=== PATIENT | female | born 1990 | race Caucasian/White ===

== ENCOUNTER 2019-11-24 19:50 | Inpatient (IN) | payer OTHER ==
[2019-11-24] MEDS ORDERED: AMPICILLIN SODIUM 2 GM VIAL ONE (22:18)
[2019-11-24] MEDS ORDERED: OXYTOCIN 30 UNITS in 0.9% NS 30 UNIT/500 ML INFUS.BAG IVPB ONE (22:18)
[2019-11-24] MEDS ORDERED: AMPICILLIN - 2 GM in SODIUM CHLORIDE 100 ML IVPB ONE (22:41)
[2019-11-24] MEDS ORDERED: OXYTOCIN 30 UNITS in 0.9% NS 30 UNIT/500 ML INFUS.BAG IVPB SCH (22:45)
[2019-11-24] MEDS ORDERED: ELECTROLYTE-148 SOLN 1,000 ML IV SCH (22:45)
--- NOTE | 2019-11-24 22:50 | HP ---
Past Medical History - Primary Care Physician PCP:: Omkar Canales - Admission Chief Complaint: pregnacy 37 weeks, labor History of Present Illness: 29 yo f care with DR gomes c/o contraction, no ROM, has bloody show , cx 4 cm 80 vx -2 mi, fhr cat 1, irregular contraction , GBS unknown, History Source: Patient Limitations to Obtaining History: No Limitations - Past Medical History ...: 1 ...Para: 0 ...EDC by Sono: 12/11/19 - Past Surgical History Hx Myomectomy: No Hx Transabdominal Cerclage: No - Alcohol/Substance Use Hx Alcohol Use: No History of Substance Use: reports: None - Social History Usual Living Arrangement: Yes: With Spouse History of Recent Travel: No Home Medications - Allergies Allergies/Adverse Reactions: Allergies Allergy/AdvReac Type Severity Reaction Status Date / Time No Known Allergies Allergy Verified 11/24/19 21:18 - Home Medications Home Medications: Ambulatory Orders Pnv 29-1 Tablet 1 tab PO DAILY 11/24/19 Review of Systems - Review of Systems Constitutional: reports: No Symptoms Eyes: reports: No Symptoms HENT: reports: No Symptoms Neck: reports: No Symptoms Cardiovascular: reports: No Symptoms Respiratory: reports: No Symptoms Gastrointestinal: reports: No Symptoms Genitourinary: reports: No Symptoms Breasts: reports: No Symptoms Reported Musculoskeletal: reports: No Symptoms Integumentary: reports: No Symptoms Neurological: reports: No Symptoms Endocrine: reports: No Symptoms Hematology/Lymphatic: reports: No Symptoms Psychiatric: reports: No Symptoms Physical Exam - Maternity Constitutional: Yes: Obese Eyes: Yes: WNL HENT: Yes: WNL Neck: Yes: WNL Cardiovascular: Yes: WNL Breast(s): Yes: WNL - Abdominal Exam/OB Fundal Height: 40 Number of Fetuses: Single Presentation: Vertex Contractions: Yes Regularity: Irregular Intensity: Moderate Monitor Mode: External Heart Rate Location: [facility] Category: I Accelerations: Non-Uniform Decelerations: None - Vaginal Exam/OB Vaginal Bleeding: Bloody Show Speculum Exam: No Dilatation (cm): 4cm Effacement (%): 80 Amniotic Membrane Status: Intact Presentation: Vertex/Position Station: -2 - Physical Exam Musculoskeletal: Yes: WNL Extremities: Yes: WNL Edema: Yes Edema: LLE: Trace, RLE: Trace Deep Tendon Reflex Grade: Normal +2 ...Motor Strength: WNL Psychiatric: Yes: WNL Hemorrhage Risk Assessment - Risk Factors Medium Risk Factors: Yes: None High Risk Factors: Yes: None Risk Score: 1 Risk Level: Medium Risk Problem List - Problems (1) with 37 weeks completed gestation Code(s): Z3A.37 - 37 WEEKS GESTATION OF (2) Labor established Code(s): SWW4610 - Assessment/Plan admit for vaginal delivery GBS prophylaxis irregular contraction , advised pitocin , risks discussed
--- NOTE | 2019-11-24 22:52 | PN ---
Progress Note (short form) - Note Progress Note: srom, clear, fhr cat 1 , wants epidural Problem List - Problems (1) with 37 weeks completed gestation Code(s): Z3A.37 - 37 WEEKS GESTATION OF (2) Labor established Code(s): [id number] -
[2019-11-24] MEDS ORDERED: BUPIVACAINE HCL/PF 0.25% (2.5MG/ML) 10 ML VIAL ONE (23:26)
[2019-11-24] MEDS ORDERED: FENTANYL/BUPIVACAINE/NS/PF - PCEA - 50 ML DISP.SYRIN EP ONE (23:31)
[2019-11-24] MEDS ORDERED: PCA PUMP NR ONE (23:32)
[2019-11-24 23:39] LABS: BASO % 0.3 % (0-2.0); HEMATOCRIT 33.3 % (32.4-45.2); HEMOGLOBIN 11.3 GM/dL (10.7-15.3); LYMPH % 12.4 % (8-40); MCH 31.7 pg (25.7-33.7); MCHC 33.9 g/dl (32.0-36.0); MEAN CELL VOLUME 93.5 fl (80-96); MEAN PLT VOLUME 9.5 fl (7.5-11.1); MONO % 6.1 % (3.8-10.2); NEUT % 80.2 % (42.8-82.8); PLATELET COUNT 244 K/MM3 (134-434); RBC 3.56 M/mm3 (3.60-5.2); RDW 13.4 % (11.6-15.6); WHITE BLOOD COUNT 15.9 K/mm3 (4.0-10.0)
[2019-11-24 23:45] LABS: INR 0.88 (0.83-1.09); PROTHROMBIN TIME (PATIENT) 10.4 SEC (9.7-13.0)
[2019-11-24 23:59] LABS: BLOOD UREA NITROGEN 9.6 mg/dL (7-18); CALCIUM 8.6 mg/dL (8.5-10.1); CREATININE 0.5 mg/dL (0.55-1.3); POTASSIUM 4.2 mmol/L (3.5-5.1)
[2019-11-25] MEDS ORDERED: NALOXONE HCL 0.4 MG/ML VIAL IVPUSH PRN (00:13)
[2019-11-25] MEDS ORDERED: FENTANYL/BUPIVACAINE/NS/PF - PCEA - 50 ML DISP.SYRIN EP SCH (00:15)
[2019-11-25] MEDS ORDERED: OXYTOCIN 20 UNITS in 0.9% NS 20 UNIT/1,000 ML INFUS.BAG IV ONE (01:09)
[2019-11-25] MEDS ORDERED: BENZOCAINE 28 GM HEMORRHOIDAL OINTMENT TP PRN (01:29)
[2019-11-25] MEDS ORDERED: ACETAMINOPHEN 325 MG TABLET (FP) PO PRN (01:29)
[2019-11-25] MEDS ORDERED: IBUPROFEN 600 MG TABLET (FP) PO PRN (01:29)
[2019-11-25] MEDS ORDERED: BENZOCAINE 20% 57 GM BOTTLE TP PRN (01:29)
[2019-11-25] MEDS ORDERED: WITCH HAZEL 50% (TUCKS) 40 PAD/JAR PAD TP PRN (01:29)
[2019-11-25] MEDS ORDERED: METHYLERGONOVINE MALEATE 0.2 MG/1 ML AMP IM PRN (01:29)
[2019-11-25] MEDS ORDERED: BISACODYL 10 MG SUPP.RECT RC PRN (01:29)
[2019-11-25] MEDS ORDERED: METHYLERGONOVINE MALEATE 0.2 MG/1 ML AMP IM ONE (01:30)
[2019-11-25] MEDS ORDERED: OXYTOCIN 20 UNITS in 0.9% NS 20 UNIT/1,000 ML INFUS.BAG IV SCH (01:30)
--- NOTE | 2019-11-25 01:32 | PN ---
Delivery - Delivery Vaginal Delivery: Spontaneous Type of Anesthesia: Epidural Episiotomy/Laceration: None (cx full head delivered DOMENIC, ant and post shoulder with no difficulty , live baby girl , 9/9 ,placeta complete , no laceration, ebl 300cc , no complication, baby bonded with MOM)
[2019-11-25 02:42] VITALS: BMI 37.2
[2019-11-25] MEDS ORDERED: AMPICILLIN - 1 GM in SODIUM CHLORIDE 100 ML IVPB SCH (03:00)
[2019-11-25 04:57] LABS: CORD BASE EXCESS -5.7 mmol/L (0-2); CORD HCO3 21.1 mmHg (20-29); CORD PCO2 45.9 mmHg (30-78); CORD pH 7.281 (7.14-7.44)
[2019-11-25] MEDS: FERROUS SO4 325 MG TABLET (FP) PO SCH ×2 (09:28→21:23)
[2019-11-25] MEDS: PRENATAL VITAMINS W/ FOLIC ACID TABLET (FP) PO SCH (09:29)
[2019-11-25 13:04] LABS: POC NITRAZINE POS
--- NOTE | 2019-11-26 07:39 | PN ---
Post Progress Note - Subjective Subjective: Feels well. Post Day: 1 Type of Delivery: Vital Signs: Vital Signs Temperature 98.3 F 11/25/19 21:54 Pulse Rate 97 H 11/25/19 21:54 Respiratory Rate 18 11/25/19 21:54 Blood Pressure 123/78 11/25/19 21:54 O2 Sat by Pulse Oximetry (%) 98 11/25/19 03:00 Breast Exam: Yes: Soft Uterus: Yes: Fundus Firm Abdomen/GI: Yes: Abdomen soft, Tolerating PO Lochia: Yes: Rubra Lochia, amount: Small Extremities: Yes: Calves non-tender - Labs Labs: CBC WBC 15.9 K/mm3 (4.0-10.0) H 11/24/19 22:45 RBC 3.56 M/mm3 (3.60-5.2) L 11/24/19 22:45 Hgb 11.3 GM/dL (10.7-15.3) 11/24/19 22:45 Hct 33.3 % (32.4-45.2) 11/24/19 22:45 MCV 93.5 fl (80-96) 11/24/19 22:45 MCH 31.7 pg (25.7-33.7) 11/24/19 22:45 MCHC 33.9 g/dl (32.0-36.0) 11/24/19 22:45 RDW 13.4 % (11.6-15.6) 11/24/19 22:45 Plt Count 244 K/MM3 (134-434) 11/24/19 22:45 MPV 9.5 fl (7.5-11.1) 11/24/19 22:45 Absolute Neuts (auto) 12.7 K/mm3 (1.5-8.0) H 11/24/19 22:45 Neutrophils % 80.2 % (42.8-82.8) 11/24/19 22:45 Lymphocytes % 12.4 % (8-40) 11/24/19 22:45 Monocytes % 6.1 % (3.8-10.2) 11/24/19 22:45 Eosinophils % 1.0 % (0-4.5) 11/24/19 22:45 Basophils % 0.3 % (0-2.0) 11/24/19 22:45 Nucleated RBC % 0 % (0-0) 11/24/19 22:45 Other Findings, Remarks: Doing well. Problem List - Problems (1) Normal course Code(s): Z39.2 - ENCOUNTER FOR ROUTINE FOLLOW-UP Assessment/Plan Doing well. Uneventful recovery. Instructions given. Discharge.
--- NOTE | 2019-11-26 07:44 | DS ---
Physical Exam-FERMENTER WINE Vital Signs: Vital Signs Temperature 98.3 F 11/25/19 21:54 Pulse Rate 97 H 11/25/19 21:54 Respiratory Rate 18 11/25/19 21:54 Blood Pressure 123/78 11/25/19 21:54 O2 Sat by Pulse Oximetry (%) 98 11/25/19 03:00 Constitutional: Yes: Well Nourished, No Distress, Calm Eyes: Yes: WNL, Conjunctiva Clear, EOM Intact HENT: Yes: WNL, Atraumatic, Normocephalic Neck: Yes: WNL, Supple, Trachea Midline Cardiovascular: Yes: WNL, Regular Rate and Rhythm Respiratory: Yes: WNL, Regular, CTA Bilaterally Gastrointestinal: Yes: WNL ...Rectal Exam: Yes: WNL Renal/: Yes: WNL ....Post : Yes: Uterus firm Breast(s): Yes: WNL Musculoskeletal: Yes: WNL Extremities: Yes: WNL Integumentary: Yes: WNL Neurological: Yes: WNL, Alert, Oriented ...Motor Strength: WNL Psychiatric: Yes: WNL, Alert, Oriented Labs: CBC, BMP 11/24/19 22:45 11/24/19 22:45 Delivery - Delivery Vaginal Delivery: Spontaneous Type of Anesthesia: Epidural Episiotomy/Laceration: None (cx full head delivered DOMENIC, ant and post shoulder with no difficulty , live baby girl , 9/9 ,placeta complete , no laceration, ebl 300cc , no complication, baby bonded with MOM) EBL (cc): 300 Delivery, Single - Stages of Labor Date 1st Stage Initiatied: 11/24/19 Time 1st Stage Initiated: 17:00 Date 2nd Stage Initiated: 11/24/19 Time 2nd Stage Initiated: 22:30 Date of Delivery: 11/25/19 Time of Delivery: 01:12 Time Placenta Delivered: 01:15 - Condition of Infant Social Worker Health Services/Assistant Auditor Present: No Gender: Female Weight: 6 lb 11 oz Position: Left, OA Total Hours ROM (Hrs/Mins): 2 HOURS/ 42 MINUTES - 1 Minute Total Score: 9 5 Minutes Total Score: 9 - [place] Feeding Plan Initial Plan: Exclusive throughout hospitalization Remarks - Remarks Remarks: Happy. Excellent recovery. Discharge today. Discharge Summary Problems reviewed: Yes Reason For Visit: LABOR Current Active Problems Labor established (Acute) Normal course (Acute) with 37 weeks completed gestation (Acute) Hospital Course: excellent Condition: Good - Instructions Diet, Activity, Other Instructions: all discussed Disposition: HOME - Home Medications Comprehensive Discharge Medication List: Ambulatory Orders Pnv 29-1 Tablet 1 tab PO DAILY 11/24/19
[2019-11-26 08:20] LABS: BASO % 0.2 % (0-2.0); EOS % 1.9 % (0-4.5); HEMATOCRIT 30.4 % (32.4-45.2); HEMOGLOBIN 10.3 GM/dL (10.7-15.3); LYMPH % 22.2 % (8-40); MCH 32.1 pg (25.7-33.7); MCHC 33.9 g/dl (32.0-36.0); MEAN CELL VOLUME 94.6 fl (80-96); MEAN PLT VOLUME 9.1 fl (7.5-11.1); MONO % 5.1 % (3.8-10.2); NEUT % 70.6 % (42.8-82.8); PLATELET COUNT 240 K/MM3 (134-434); RBC 3.21 M/mm3 (3.60-5.2); RDW 13.7 % (11.6-15.6); WHITE BLOOD COUNT 11.8 K/mm3 (4.0-10.0)
[2019-11-26] MEDS: PRENATAL VITAMINS W/ FOLIC ACID TABLET (FP) PO SCH (09:12)
[2019-11-26] MEDS: FERROUS SO4 325 MG TABLET (FP) PO SCH (09:12)
[2019-11-26 09:42] VITALS: BP 127/82; PULSE 90; TEMP 97.9
[2019-11-26] MEDS ORDERED: SENNOSIDES/DOCUSATE COMBO (SENNA PLUS) TABLET (UD) PO PRN (22:00)
== END 2019-11-26 11:10 | disposition home or self-care (01) | DRG 560 ==
LOC: JDEL 19:50 → JLDR 21:30 → J3N 11-25 04:33
PROVIDERS: ADMIT Obstetrics & Gynecology; ATTEND Obstetrics & Gynecology
PROC: 10E0XZZ Delivery of Products of Conception, External Approach (ICD-10-PCS; principal; 2019-11-25)
DX: O80 Encounter for full-term uncomplicated delivery (principal); Z3A.37 37 weeks gestation of pregnancy; Z37.0 Single live birth
CPT/HCPCS: 36415; 36600; 59409; 80048; 82803; 83986-QW; 85025; 85610; 85730; 86780; 86850; 86900; 86901; 87389; U0003

== ENCOUNTER 2021-09-21 09:45 | Inpatient (IN) | payer BC ==
[~2021-09-21 09:45] MED LIST: ELECTROLYTE-148 SOLN 1,000 ML IV SCH; OXYTOCIN 30 UNITS in 0.9% NS 30 UNIT/500 ML INFUS.BAG IVPB SCH
[2021-09-21] MEDS ORDERED: OXYTOCIN 30 UNITS in 0.9% NS 30 UNIT/500 ML INFUS.BAG IVPB ONE (10:43)
[2021-09-21 11:39] VITALS: BMI 38.4
[2021-09-21] MEDS ORDERED: FENTANYL/BUPIVACAINE/NS/PF - PCEA - 50 ML DISP.SYRIN EP ONE ×3 (16:45→23:38)
[2021-09-21] MEDS: FENTANYL/BUPIVACAINE/NS/PF - PCEA - 50 ML DISP.SYRIN EP SCH (17:20)
[2021-09-21] MEDS ORDERED: NALOXONE HCL 0.4 MG/ML VIAL IVPUSH PRN (17:35)
[2021-09-21] MEDS ORDERED: BUPIVACAINE HCL/PF 0.25% (2.5MG/ML) 10 ML VIAL ONE ×2 (21:39→23:39)
[2021-09-22] MEDS ORDERED: OXYTOCIN 20 UNITS in 0.9% NS 20 UNIT/1,000 ML INFUS.BAG IV ONE (02:08)
[2021-09-22] MEDS ORDERED: ACETAMINOPHEN 325 MG TABLET (FP) PO PRN (02:36)
[2021-09-22] MEDS ORDERED: BENZOCAINE 20% 57 GM BOTTLE TP PRN (02:36)
[2021-09-22] MEDS ORDERED: WITCH HAZEL 50% (TUCKS) 40 PAD/JAR PAD TP PRN (02:36)
[2021-09-22] MEDS ORDERED: BENZOCAINE 28 GM HEMORRHOIDAL OINTMENT TP PRN (02:36)
[2021-09-22] MEDS ORDERED: BISACODYL 10 MG SUPP.RECT RC PRN (02:36)
[2021-09-22] MEDS ORDERED: METHYLERGONOVINE MALEATE 0.2 MG/1 ML AMP IM PRN (02:36)
[2021-09-22] MEDS ORDERED: oxyCODONE HCL 5 MG TABLET PO PRN (02:36)
[2021-09-22] MEDS ORDERED: OXYTOCIN 20 UNITS in 0.9% NS 20 UNIT/1,000 ML INFUS.BAG IV SCH (02:45)
[2021-09-22] MEDS: IBUPROFEN 600 MG TABLET (FP) PO PRN ×2 (08:09→16:57)
[2021-09-22 08:22] LABS: BASO % 0.2 % (0-2.0); EOS % 0.5 % (0-4.5); HEMATOCRIT 27.9 % (32.4-45.2); HEMOGLOBIN 9.3 GM/dL (10.7-15.3); LYMPH % 13.6 % (8-40); MCHC 33.3 g/dl (32.0-36.0); MEAN PLT VOLUME 9.4 fl (7.5-11.1); MONO % 5.3 % (3.8-10.2); NEUT % 80.4 % (42.8-82.8); PLATELET COUNT 208 10^3/uL (134-434); RDW 13.2 % (11.6-15.6); WHITE BLOOD COUNT 15.9 K/mm3 (4.0-10.0)
[2021-09-22] MEDS: PRENATAL VITAMINS W/ FOLIC ACID TABLET (FP) PO SCH (09:35)
[2021-09-22] MEDS: FENTANYL/BUPIVACAINE/NS/PF - PCEA - 50 ML DISP.SYRIN EP SCH (18:53)
[2021-09-23 09:16] VITALS: BP 116/69; PULSE 69; TEMP 98
[2021-09-23] MEDS: PRENATAL VITAMINS W/ FOLIC ACID TABLET (FP) PO SCH (09:38)
[2021-09-23] MEDS ORDERED: SENNOSIDES/DOCUSATE COMBO (SENNA PLUS) TABLET (UD) PO PRN (22:00)
== END 2021-09-23 16:30 | disposition home or self-care (01) | DRG 560 ==
LOC: JLDR 09:45 → J3W 09-22 03:43
PROVIDERS: ADMIT Obstetrics & Gynecology; ATTEND Obstetrics & Gynecology
PROC: 3E033VJ Introduction of Other Hormone into Peripheral Vein, Percutaneous Approach (ICD-10-PCS; 2021-09-21)
PROC: 10907ZC Drainage of Amniotic Fluid, Therapeutic from Products of Conception, Via Natural or Artificial Opening (ICD-10-PCS; 2021-09-21)
PROC: 10E0XZZ Delivery of Products of Conception, External Approach (ICD-10-PCS; principal; 2021-09-22)
DX: O41.03X0 Oligohydramnios, third trimester, not applicable or unspecified (principal); O69.81X0 Labor and delivery complicated by cord around neck, without compression, not applicable or unspecified; Z3A.38 38 weeks gestation of pregnancy; Z37.0 Single live birth
CPT/HCPCS: 36415; 59409; 85025